=== PATIENT | male | born 1955 | race Caucasian/White ===

== ENCOUNTER 2023-10-05 07:18 | Emergency (ER) | payer OTHER | END 2023-10-05 08:39 | disposition home or self-care (01) | LOC: ERS 07:18 | DX: S76.011A Strain of muscle, fascia and tendon of right hip, initial encounter (principal); W27.1XXA Contact with garden tool, initial encounter; Y92.007 Garden or yard of unspecified non-institutional (private) residence as the place of occurrence of the external cause; Y93.H2 Activity, gardening and landscaping | CPT/HCPCS: 99283 ==